=== PATIENT | male | born 1945 | race Caucasian/White ===

== ENCOUNTER → 2018-08-19 | Outpatient (CLI) | payer MEDICARE ==
[~2018-08-19] MED LIST: DOBUTamine DRIP for NUC MED 500 MG in DEXTROSE/WATER 1 250ML.BAG IV ONE
--- NOTE | 2018-08-19 10:20 | XR ---
EXAMINATION TYPE: XR chest 2V DATE OF EXAM: 08/19/2018 COMPARISON: 01/29/2014 TECHNIQUE: PA and lateral views submitted. HISTORY: Shortness of breath FINDINGS: The lungs are clear and there is no pneumothorax, pleural effusion, or focal pneumonia. Hypertrophi c and degenerative change of the spine. Postsurgical change involving the upper lumbar spine. No over t failure. IMPRESSION: 1. No acute process.
--- NOTE | 2018-08-19 15:45 | P.STRESS ---
- Stress Test Note Stress Test Results/Findings: Exam Performed: dobutamine stress echo Exam Date: 08/19/18 Reason for Exam: SOB Height: 6 ft Weight: 97.522 kg Protocol: DSE Stage: 2 Duration of Exercise: 5:28 Resting Heart Rate: 92 Resting Blood Pressure: 131/107 Maximum Achieved Heart Rate: 132 Maximum Achieved Blood Pressure: 158/64 85% PMHR: 128 100% PMHR: 150 METS: NA Technologist Comment: Stress Test Results/Findings: Patient referred for a stress echo by Dr. Linder Complaining of shortness of breath on exertion Baseline heart rate 92 beats a minute, Baseline blood pressure 131/57 mmHg The center ECG showed sinus rhythm and incomplete right bundle branch block pattern normal ST segments Patient exercised on a Rajiv protocol for 5 minutes 28 seconds achieving a peak heart rate of 126 beats a minute normal blood pressure response to exercise. He complains of shortness of breath at peak exercise There was no ECG evidence for ischemia no sustained or nonsustained arrhythmias noted only occasional PVCs noted Baseline 2-D echo showed normal LV systolic function without segmental wall motion abnormalities At peak exercise there was excellent augmentation of oral LV contractility without development of any wall motion abnormalities @Recovery regional global LV systolic function and normal Impression Average exercise capacity, occasional PVCs, no ECG or echocardiographic evidence for ischemia
== END | disposition home or self-care (01) ==
LOC: RADNMMAIN 08:57
PROVIDERS: ATTEND Internal Medicine
DX: I49.3 Ventricular premature depolarization (principal)
CPT/HCPCS: 93351; 71046; J1250

== ENCOUNTER 2020-01-18 05:13 | Observation (INO) | payer MEDICARE ==
[2020-01-18] MEDS ORDERED: LORazepam 2 MG/ML INJ IV STA (05:42)
[2020-01-18] MEDS ORDERED: SODIUM CHLORIDE 0.9% 1,000 ML IV STA (05:42)
--- NOTE | 2020-01-18 05:45 | ED ---
General Adult HPI - General Chief complaint: Chest Pain Stated complaint: Chest Pain, SOB Time Seen by Provider: 01/18/20 05:27 Source: patient Mode of arrival: ambulatory Limitations: no limitations - History of Present Illness Initial comments: Dictation was produced using [employer] dictation software. please excuse any grammatical, word or spelling errors. Chief Complaint: 74-year-old male presents with chest pain and headache. History of Present Illness: Male he was recently diagnosed with hypertension. Patient was started on blood pressure medications. Patient states that for the last 9 hours he's been having headache and chest pain. Patient states that the pain is sharp and constant to his anterior chest. Patient states he also has a headache. He describes it as holocranial. He feels rather severely anxious. He is been monitoring his blood pressures at home which he takes reports he is having difficulty controlling. He denies any diaphoresis. Pain does not radiate to the shoulders or jaw. Patient takes also medications for his blood pressure. No fever, chills or night sweats. He request medication to treat his anxiety. The ROS documented in this emergency department record has been reviewed and confirmed by me. Those systems with pertinent positive or negative responses have been documented in the HPI. All other systems are other negative and/or noncontributory. PHYSICAL EXAM: General Impression: Alert and oriented x3, not in acute distress HEENT: Normocephalic atraumatic, extra-ocular movements intact, pupils equal and reactive to light bilaterally, mucous membranes moist. Cardiovascular: Heart regular rate and rhythm, S1&S2 audible, no murmurs, rubs or gallops Chest: Lungs clear to auscultation bilaterally, no rhonchi, no wheeze, no rales Abdomen: Bowel sounds present, abdomen soft, non-tender, non-distended, no organomegaly Musculoskeletal: Pulses present and equal in all extremities, no peripheral edema Motor: no focal deficits noted Neurological: CN II-XII grossly intact, no focal motor or sensory deficits noted Skin: Intact with no visualized rashes Psych: Normal affect and mood ED course: 74-year-old male presents with headache, anxiety reaction and chest pain. Vital signs upon arrival shows heart rate of 109, rest of vital signs within acceptable limits. Of note his blood pressure is 188/99. Patient does not have any neurologic deficits or strokelike symptoms. Patient's chest pain is atypical with typical features. Patient is well-appearing at bedside.Labor atory evaluation obtained. CBC, coag panel, metabolic panel is unremarkable. First set troponins negative. Chest x-ray is nonacute. Patient reevaluated bedside time is stable medical condition. Patient reports persistent symptoms. He does however appear to be well. No acute distress. Patient be admitted for surgical and cardiology consultation. Clinical presentation consistent with atypical chest pain with typical features. EKG interpretation: Ventricular rate 95, normal sinus rhythm, [place] interval 180, QRS 110, QTc 510. - Related Data Allergies Allergy/AdvReac Type Severity Reaction Status Date / Time No Known Allergies Allergy Unverified 08/19/18 09:41 Review of Systems ROS Statement: Those systems with pertinent positive or pertinent negative responses have been documented in the HPI. ROS Other: All systems not noted in ROS Statement are negative. Past Medical History Past Medical History: Diabetes Mellitus, Hypertension Past Surgical History: Orthopedic Surgery Additional Past Surgical History / Comment(s): Left knee 2019. Past Psychological History: No Psychological Hx Reported Smoking Status: Never smoker Past Alcohol Use History: Occasional General Exam Limitations: no limitations Course Vital Signs 01/18/20 01/18/20 05:20 06:49 Temperature 97.5 F L 97.5 F L Pulse Rate 109 H 84 Respiratory 18 16 Rate Blood Pressure 188/99 157/94 O2 Sat by Pulse 97 98 Oximetry Medical Decision Making - Lab Data Result diagrams: 01/18/20 05:40 01/18/20 05:40 Lab Results 01/18/20 01/18/20 01/18/20 Range/Units 05:40 05:40 05:40 WBC 7.1 (3.8-10.6) k/uL RBC 4.02 L (4.30-5.90) m/uL Hgb 12.3 L (13.0-17.5) gm/dL Hct 36.4 L (39.0-53.0) % MCV 90.6 (80.0-100.0) fL MCH 30.6 (25.0-35.0) pg MCHC 33.8 (31.0-37.0) g/dL RDW 12.9 (11.5-15.5) % Plt Count 334 (150-450) k/uL Neutrophils % 57 % Lymphocytes % 27 % Monocytes % 6 % Eosinophils % 6 % Basophils % 1 % Neutrophils # 4.1 (1.3-7.7) k/uL Lymphocytes # 1.9 (1.0-4.8) k/uL Monocytes # 0.4 (0-1.0) k/uL Eosinophils # 0.4 (0-0.7) k/uL Basophils # 0.0 (0-0.2) k/uL PT 10.1 (9.0-12.0) sec INR 1.0 (<1.2) APTT 23.4 (22.0-30.0) sec Sodium 139 (137-145) mmol/L Potassium 3.8 (3.5-5.1) mmol/L Chloride 103 (98-107) mmol/L Carbon Dioxide 25 (22-30) mmol/L Anion Gap 11 mmol/L BUN 20 (9-20) mg/dL Creatinine 1.33 H (0.66-1.25) mg/dL Est GFR (CKD-EPI)AfAm 62 (>60 ml/min/1.73 sqM) Est GFR (CKD-EPI)NonAf 53 (>60 ml/min/1.73 sqM) Glucose 123 H (74-99) mg/dL Calcium 10.2 (8.4-10.2) mg/dL Magnesium 1.8 (1.6-2.3) mg/dL Total Bilirubin 0.6 (0.2-1.3) mg/dL AST 23 (17-59) U/L ALT 19 (4-49) U/L Alkaline Phosphatase 66 (38-126) U/L Troponin I (0.000-0.034) ng/mL Total Protein 7.9 (6.3-8.2) g/dL Albumin 5.1 H (3.5-5.0) g/dL 01/18/20 Range/Units 05:40 WBC (3.8-10.6) k/uL RBC (4.30-5.90) m/uL Hgb (13.0-17.5) gm/dL Hct (39.0-53.0) % MCV (80.0-100.0) fL MCH (25.0-35.0) pg MCHC (31.0-37.0) g/dL RDW (11.5-15.5) % Plt Count (150-450) k/uL Neutrophils % % Lymphocytes % % Monocytes % % Eosinophils % % Basophils % % Neutrophils # (1.3-7.7) k/uL Lymphocytes # (1.0-4.8) k/uL Monocytes # (0-1.0) k/uL Eosinophils # (0-0.7) k/uL Basophils # (0-0.2) k/uL PT (9.0-12.0) sec INR (<1.2) APTT (22.0-30.0) sec Sodium (137-145) mmol/L Potassium (3.5-5.1) mmol/L Chloride (98-107) mmol/L Carbon Dioxide (22-30) mmol/L Anion Gap mmol/L BUN (9-20) mg/dL Creatinine (0.66-1.25) mg/dL Est GFR (CKD-EPI)AfAm (>60 ml/min/1.73 sqM) Est GFR (CKD-EPI)NonAf (>60 ml/min/1.73 sqM) Glucose (74-99) mg/dL Calcium (8.4-10.2) mg/dL Magnesium (1.6-2.3) mg/dL Total Bilirubin (0.2-1.3) mg/dL AST (17-59) U/L ALT (4-49) U/L Alkaline Phosphatase (38-126) U/L Troponin I <0.012 (0.000-0.034) ng/mL Total Protein (6.3-8.2) g/dL Albumin (3.5-5.0) g/dL Disposition Clinical Impression: Chest pain Disposition: ADMITTED IP TO THIS HOSP Condition: Fair Referrals: Ras Leong MD [Primary Care Provider] - 1-2 days Decision Time: 06:52
[2020-01-18 05:57] LABS: Basophils % (A) 1 %; Eosinophils # (A) 0.4 k/uL (0-0.7); Eosinophils % (A) 6 %; HCT 36.4 % (39.0-53.0); HGB 12.3 gm/dL (13.0-17.5); Lymphocytes # (A) 1.9 k/uL (1.0-4.8); Lymphocytes % (A) 27 %; MCH 30.6 pg (25.0-35.0); MCHC 33.8 g/dL (31.0-37.0); MCV 90.6 fL (80.0-100.0); Mean Platelet Volume 7.9; Monocytes # (A) 0.4 k/uL (0-1.0); Monocytes % (A) 6 %; Neutrophils # (A) 4.1 k/uL (1.3-7.7); Neutrophils % (A) 57 %; Platelet Count 334 k/uL (150-450); RBC 4.02 m/uL (4.30-5.90); RDW 12.9 % (11.5-15.5); WBC 7.1 k/uL (3.8-10.6)
[2020-01-18 06:05] LABS: Partial Thromboplastin Time 23.4 sec (22.0-30.0); Prothrombin Time 10.1 sec (9.0-12.0)
[2020-01-18 06:08] LABS: Albumin 5.1 g/dL (3.5-5.0); Calcium 10.2 mg/dL (8.4-10.2); Magnesium 1.8 mg/dL (1.6-2.3); Potassium 3.8 mmol/L (3.5-5.1); Total Bilirubin 0.6 mg/dL (0.2-1.3); Total Protein 7.9 g/dL (6.3-8.2)
--- NOTE | 2020-01-18 06:10 | XR ---
EXAM: XR Chest, 2 Views CLINICAL HISTORY: ITS.REASON XR Reason: Chest Pain TECHNIQUE: Frontal and lateral views of the chest. COMPARISON: 08/19/2018 IMPRESSION: Mild cardiomegaly. No consolidation or pleural effusion.
[2020-01-18] MEDS ORDERED: ASPIRIN 81 MG PO STA ×2 (06:49→09:15)
[2020-01-18] MEDS ORDERED: NITROGLYCERIN SL TABS 0.4 MG TAB SUBLINGUAL PRN (06:49)
[2020-01-18] MEDS ORDERED: PANTOPRAZOLE 40 MG TABLET PO SCH (09:00)
[2020-01-18] MEDS ORDERED: ALLOPURINOL 300 MG TAB PO SCH (09:00)
[2020-01-18] MEDS ORDERED: METOPROLOL TARTRATE 50 MG TAB PO SCH (09:00)
[2020-01-18] MEDS ORDERED: LOSARTAN 25 MG TAB PO SCH (09:00)
[2020-01-18] MEDS: hydrALAZINE HCL 25 MG TAB PO SCH ×3 (09:18→20:12)
[2020-01-18] MEDS: VIT A,C & E-LUTEIN-MINERALS 1 EACH TAB PO SCH ×2 (09:19→20:12)
--- NOTE | 2020-01-18 10:22 | ECHOF ---
Referral Reason:cp, elev bp MEASUREMENTS -------- HEIGHT: 180.3 cm WEIGHT: 93.0 kg BP: 181/90 RVIDd: 3.2 cm (< 3.3) IVSd: 1.5 cm (0.6 - 1.1) LVIDd: 4.2 cm (3.9 - 5.3) LVPWd: 1.5 cm (0.6 - 1.1) IVSs: 2.0 cm LVIDs: 3.4 cm LVPWs: 1.6 cm LA Diam: 3.9 cm (2.7 - 3.8) LAESV Index (A-L): 31.21 ml/m Ao Diam: 4.1 cm (2.0 - 3.7) AV Cusp: 2.4 cm (1.5 - 2.6) MV EXCURSION: 12.364 mm (> 18.000) MV EF SLOPE: 95 mm/s (70 - 150) EPSS: 2.4 cm MV E Rigo: 0.70 m/s MV DecT: 182 ms MV A Rigo: 1.08 m/s MV E/A Ratio: 0.64 FINDINGS -------- Sinus rhythm. This was a technically good study. The left ventricular size is normal. There is moderate concentric left ventricular hypertrophy. O verall left ventricular systolic function is normal with, an EF between 55 - 60 %. The right ventricle is normal in size. LA is midly dilated 29-33ml/m2. The right atrium is normal in size. There is mild aortic valve sclerosis. There is mild aortic regurgitation. There is trace mitral regurgitation. The tricuspid valve appears structurally normal. Trace/mild (physiologic) pulmonic regurgitation. The aortic root is dilated measuring 4.1cm. Normal inferior vena cava with normal inspiratory collapse consistent with estimated right atrial pre ssure of 5 mmHg. There is no pericardial effusion. CONCLUSIONS -------- 1. Sinus rhythm. 2. This was a technically good study. 3. The left ventricular size is normal. 4. There is moderate concentric left ventricular hypertrophy. 5. Overall left ventricular systolic function is normal with, an EF between 55 - 60 %. 6. The right ventricle is normal in size. 7. LA is midly dilated 29-33ml/m2. 8. The right atrium is normal in size. 9. There is mild aortic valve sclerosis. 10. There is mild aortic regurgitation. 11. There is trace mitral regurgitation. 12. The tricuspid valve appears structurally normal. 13. Trace/mild (physiologic) pulmonic regurgitation. 14. The aortic root is dilated measuring 4.1cm. 15. Normal inferior vena cava with normal inspiratory collapse consistent with estimated right atrial pressure of 5 mmHg. 16. There is no pericardial effusion. [employer]OWS ENGINEER: Honey Michael RDCS
--- NOTE | 2020-01-18 10:37 | P.CRDCN ---
History of Present Illness History of present illness: HISTORY OF PRESENTING ILLNESS This is a pleasant 74-year-old male past medical history significant for hypertension, diabetes mellitus, dyslipidemia and peripheral neuropathy. 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 We have been asked to see in consultation for chest pain. He is seen and examined laying flat resting comfortably in bed no acute distress. He states he has been following closely with his PCP recently and attempting to better control his blood pressure. He has been checking his blood pressures quite regularly at home and was instructed to take an additional hydralazine for systolic blood pressure over 150. All day yesterday his blood pressures were remaining elevated. Towards night time he was attempting to fall asleep however he developed a tightness across his chest with a heaviness in ben th of his arms associated with shortness of breath. On arrival to the ER blood pressure was 188/99. This morning he remains elevated at 181/90. At home he takes hydralazine 50 mg BID, cardura 4 mg at bedtime and lopressor 100 mg daily. DIAGNOSTICS EKG reveals sinus mechanism, incomplete right bundle branch block with no acute ST changes. Chest xray reveals mild cardiomegaly with no acute cardiopulmonary process. Laboratory reviewed, WBC 7.1, hgb 12.3, plt 334, sodium 139, potassium 3.8, creatinine 1.33, GFR 53, magnesium 1.8, cardiac enzymes negative x1. Current cardiac medications include hydralazine 50 mg BID, doxazosin 4 mg daily, aspirin 81 mg daily and lopressor 100 mg daily. REVIEW OF SYSTEMS At the time of my exam: CONSTITUTIONAL: Denies fever or chills. CARDIOVASCULAR: Denies chest pain, shortness of breath, orthopnea, PND or palpitations. RESPIRATORY: Denies cough. GASTROINTESTINAL: Denies abdominal pain, diarrhea, constipation, nausea or vomiting. MUSCULOSKELETAL: Denies myalgias. NEUROLOGIC: Denies numbness, tingling or weakness. ENDOCRINE: Denies fatigue, weight change, polydipsia or polyurina. GENITOURINARY: Denies burning, hematuria or urgency with micturation. HEMATOLOGIC: Denies history of anemia or bleeding. PHYSICAL EXAMINATION Blood pressure 181/90 heart rate 89 afebrile and maintaining oxygen saturation on room . CONSTITUTIONAL: No apparent distress. HEENT: Head is normocephalic. Pupils are equal, round. Sclerae anicteric. Mucous membranes of the mouth are moist. No JVD. No carotid bruit. CHEST EXAMINATION: Lungs are clear to auscultation. No chest wall tenderness is noted on palpation or with deep breathing. HEART EXAMINATION: Regular rate and rhythm. S1, S2 heard. No murmurs, gallops or rub. ABDOMEN: Soft, nontender. Positive bowel sounds. EXTREMITIES: 2+ peripheral pulses, no lower extremity edema and no calf tenderness. NEUROLOGIC EXAMINATION: Patient is awake, alert and oriented x3. ASSESSMENT Chest pain, atypical for angina Hypertension, uncontrolled Diabetes mellitus Acute kidney injury Peripheral neuropathy PLAN Continue to obtain serial enzymes to rule out an acute event. Symptoms likely related to elevated blood pressures. Recommend controlling his blood pressure first before stress testing. Increase hydralazine to 75 mg TID and initiate losartan 25 mg daily. Losartan will provide renal protective properties as well given his history of diabetes mellitus. Obtain 2D echocardigram and doppler study to assess cardiac structure and function. Thank you kindly for this consultation. Nurse Practitioner note has been reviewed, I agree with a documented findings and plan of care. Patient was seen and examined. Past Medical History Past Medical History: Diabetes Mellitus, Hypertension Past Surgical History: Orthopedic Surgery Additional Past Surgical History / Comment(s): Left knee 2019. Past Psychological History: No Psychological Hx Reported Smoking Status: Never smoker Past Alcohol Use History: Occasional - Past Family History Father Family Medical History: Myocardial Infarction ([place]) Additional Family Medical History / Comment(s): arthritis Mother Family Medical History: Cancer Additional Family Medical History / Comment(s): pancreatic Sister(s) Family Medical History: Cancer Additional Family Medical History / Comment(s): arthritis, skin ca Brother(s) Family Medical History: Cancer Additional Family Medical History / Comment(s): skin ca Medications and Allergies Home Medications Medication Instructions Recorded Confirmed Type Allopurinol [Zyloprim] 300 mg PO DAILY 01/18/20 01/18/20 History Aspirin EC [Ecotrin Low Dose] 81 mg PO HS 01/18/20 01/18/20 History Doxazosin [Cardura] 4 mg PO HS 01/18/20 01/18/20 History Fish Oil/Dha/Epa [Fish Oil 1,200 2,400 mg PO DAILY 01/18/20 01/18/20 History mg Fish Oil] Metoprolol Tartrate [Lopressor] 100 mg PO DAILY 01/18/20 01/18/20 History Montelukast Sodium [Singulair] 10 mg PO HS 01/18/20 01/18/20 History Naproxen Sodium [Aleve] 220 mg PO DAILY 01/18/20 01/18/20 History Niacinamide 500mg 500 mg PO BID 01/18/20 01/18/20 History Omeprazole 20 mg PO DAILY 01/18/20 01/18/20 History Simvastatin 40 mg PO HS 01/18/20 01/18/20 History Vit C/E/Zn/Coppr/Lutein/Zeaxan 1 cap PO BID 01/18/20 01/18/20 History [Preservision Areds 2 Softgel] hydrALAZINE HCL 50 mg PO BID-W/MEALS 01/18/20 01/18/20 History metFORMIN HCL [Glucophage] 500 mg PO BID 01/18/20 01/18/20 History Allergies Allergy/AdvReac Type Severity Reaction Status Date / Time No Known Allergies Allergy Verified 01/18/20 07:06 Physical Exam Vitals: Vital Signs Temp Pulse Pulse Resp BP BP Pulse Ox 01/18/20 07:51 97.8 F 89 16 181/90 97 01/18/20 07:03 158/93 01/18/20 06:49 97.5 F L 84 16 157/94 98 01/18/20 05:20 97.5 F L 109 H 18 188/99 97 Intake and Output 01/17/20 01/18/20 01/18/20 22:59 06:59 14:59 Other: Weight 92.986 kg Results 01/18/20 05:40 01/18/20 05:40 Cardiac Enzymes 01/18/20 01/18/20 Range/Units 05:40 05:40 AST 23 (17-59) U/L Troponin I <0.012 (0.000-0.034) ng/mL Coagulation 01/18/20 Range/Units 05:40 PT 10.1 (9.0-12.0) sec APTT 23.4 (22.0-30.0) sec CBC 01/18/20 Range/Units 05:40 WBC 7.1 (3.8-10.6) k/uL RBC 4.02 L (4.30-5.90) m/uL Hgb 12.3 L (13.0-17.5) gm/dL Hct 36.4 L (39.0-53.0) % Plt Count 334 (150-450) k/uL Comprehensive Metabolic Panel 01/18/20 Range/Units 05:40 Sodium 139 (137-145) mmol/L Potassium 3.8 (3.5-5.1) mmol/L Chloride 103 (98-107) mmol/L Carbon Dioxide 25 (22-30) mmol/L BUN 20 (9-20) mg/dL Creatinine 1.33 H (0.66-1.25) mg/dL Glucose 123 H (74-99) mg/dL Calcium 10.2 (8.4-10.2) mg/dL AST 23 (17-59) U/L ALT 19 (4-49) U/L Alkaline Phosphatase 66 (38-126) U/L Total Protein 7.9 (6.3-8.2) g/dL Albumin 5.1 H (3.5-5.0) g/dL Current Medications Generic Name Dose Route Start Last Admin Trade Name Freq PRN Reason Stop Dose Admin Aspirin 81 mg 01/19/20 09:00 Aspirin PO DAILY [facility] Hydralazine HCl 75 mg 01/18/20 09:00 Apresoline PO TID [facility] Nitroglycerin 0.4 mg 01/18/20 06:49 Nitrostat SUBLINGUAL Q5M PRN Chest Pain Intake and Output 01/17/20 01/18/20 01/18/20 22:59 06:59 14:59 Other: Weight 92.986 kg 01/18/20 05:40 01/18/20 05:40
[2020-01-18] MEDS ORDERED: ACETAMINOPHEN TAB 325 MG TAB PO PRN (10:49)
[2020-01-18 11:56] LABS: Glucose,Whole Blood 166 mg/dL (75-99)
[2020-01-18] MEDS: INSULIN ASPART (NovoLOG) 100 UNIT/ML VIAL SQ SCH ×3 (12:00→20:12)
--- NOTE | 2020-01-18 14:10 | P.HPIM ---
History of Present Illness H&P Date: 01/18/20 Chief Complaint: High blood pressure, headache, chest pain This is a 74-year-old male patient of Dr. Leong with past medical history of diabetes mellitus type 2, hypertension. Patient denies having any difficulties with his blood pressure in the past but most recently in the office he was given a prescription for hydralazine to use as needed if his systolic blood pressure was greater than 150. He states he ended up taking that this morning but it didn't seem to improve his blood pressure. He started having trouble night before last with his blood pressure began elevated and he was monitoring it. He denies having any shortness of breath. He does complain of chest discomfort that was a crushing type in the center. He also complains of generalized headache. He denies any numbness or tingling, no lightheadedness or dizziness. He denies any sided weakness. He states he normally exercises on a regular basis. Because of neuropathy which was worked up at [facility] he has trouble with balance and uses a cane at all times. Cause of neuropathy is unknown. At the time of this evaluation. Patient states he has a little headache. No chest pain. Blood pressure remains high. Patient came into [facility] emergency center for evaluation. EKG reveals sinus mechanism, incomplete right bundle branch block with no acute ST changes. Chest xray reveals mild cardiomegaly with no acute cardiopulmonary process. WBC 7.1, hgb 12.3, plt 334, sodium 139, potassium 3.8, creatinine 1.33, GFR 53, magnesium 1.8, cardiac enzymes negative x1. Initial ER blood pressure was 188/99. Patient was placed on the observation unit and seen in consultation by cardiology. Patient was placed on losartan which he has taken off his medication due to increasing renal function in the outpatient setting. Also, patient was started on hydralazine at 75 mg 3 times daily, Lopressor was continued at home dose. Recheck a blood pressure was 129/66. Repeat troponin has been negative. Patient will be discharged home today in stable condition with plan for follow-up with Dr. Leong the office. Review of Systems Constitutional: Denies chills, Denies fatigue, Denies fever, Denies lethargy, Denies malaise, Denies poor appetite, Denies weakness, Denies weight loss Eyes: denies blurred vision, denies pain Ears, nose, mouth and throat: Reports headache, Denies dental pain, Denies dysphagia, Denies nasal congestion, Denies nasal discharge, Denies vertigo Cardiovascular: Reports chest pain, Denies decreased exercise tolerance, Denies dyspnea on exertion, Denies edema, Denies leg edema, Denies lightheadedness, Denies orthopnea, Denies palpitations, Denies shortness of breath, Denies syncope Respiratory: Denies cough, Denies cough with sputum, Denies dyspnea, Denies excessive sputum, Denies hemoptysis, Denies home oxygen, Denies respiratory infections, Denies wheezing Gastrointestinal: Denies abdominal pain, Denies constipation, Denies diarrhea, Denies loss of appetite, Denies nausea, Denies vomiting Genitourinary: Denies dysuria, Denies urinary retention Musculoskeletal: Reports gait dysfunction (chronic), Denies muscle weakness, Denies myalgias Integumentary: Denies pruritus, Denies rash, Denies wounds Neurological: Reports headaches, Denies change in mentation, Denies change in speech, Denies numbness, Denies seizures, Denies vertigo, Denies weakness Psychiatric: Denies anxiety, Denies depression Endocrine: Denies fatigue, Denies weight change Past Medical History Past Medical History: Diabetes Mellitus, Hypertension Additional Past Medical History / Comment(s): skin ca, neuropathy, arthritis, shingles History of Any Multi-Drug Resistant Organisms: None Reported Past Surgical History: Orthopedic Surgery Additional Past Surgical History / Comment(s): Left knee 2019. Past Psychological History: No Psychological Hx Reported Smoking Status: Never smoker Past Alcohol Use History: Occasional - Past Family History Father Family Medical History: Myocardial Infarction ([place]), Osteoarthritis (OA) Additional Family Medical History / Comment(s): Father had several myocardial infarctions his first starting in the 50s, at age 88. Mother Family Medical History: Cancer Additional Family Medical History / Comment(s): Mother did not have any coronary artery disease, no history of stroke. She from pancreatic cancer. Sister(s) Family Medical History: Cancer Additional Family Medical History / Comment(s): arthritis, skin ca Brother(s) Family Medical History: Cancer Additional Family Medical History / Comment(s): skin ca Medications and Allergies Home Medications Medication Instructions Recorded Confirmed Type Allopurinol [Zyloprim] 300 mg PO DAILY 01/18/20 01/18/20 History Aspirin EC [Ecotrin Low Dose] 81 mg PO HS 01/18/20 01/18/20 History Doxazosin [Cardura] 4 mg PO HS 01/18/20 01/18/20 History Fish Oil/Dha/Epa [Fish Oil 1,200 2,400 mg PO DAILY 01/18/20 01/18/20 History mg Fish Oil] Losartan [Cozaar] 25 mg PO DAILY #30 tab 01/18/20 Rx Metoprolol Tartrate [Lopressor] 100 mg PO DAILY 01/18/20 01/18/20 History Montelukast Sodium [Singulair] 10 mg PO HS 01/18/20 01/18/20 History Naproxen Sodium [Aleve] 220 mg PO DAILY 01/18/20 01/18/20 History Niacinamide 500mg 500 mg PO BID 01/18/20 01/18/20 History Omeprazole 20 mg PO DAILY 01/18/20 01/18/20 History Simvastatin 40 mg PO HS 01/18/20 01/18/20 History Vit C/E/Zn/Coppr/Lutein/Zeaxan 1 cap PO BID 01/18/20 01/18/20 History [Preservision Areds 2 Softgel] hydrALAZINE HCL [Apresoline] 75 mg PO TID #270 tab 01/18/20 Rx metFORMIN HCL [Glucophage] 500 mg PO BID 01/18/20 01/18/20 History Allergies Allergy/AdvReac Type Severity Reaction Status Date / Time No Known Allergies Allergy Verified 01/18/20 07:06 Physical Exam Vitals: Vital Signs Temp Pulse Pulse Resp BP BP Pulse Ox 01/18/20 08:00 97.8 F 89 16 181/90 97 01/18/20 07:51 97.8 F 89 16 181/90 97 01/18/20 07:03 158/93 01/18/20 06:49 97.5 F L 84 16 157/94 98 01/18/20 05:20 97.5 F L 109 H 18 188/99 97 Intake and Output 01/17/20 01/18/20 01/18/20 22:59 06:59 14:59 Intake Total 200 Balance 200 Intake: Other 200 Other: Voiding Method Toilet Weight 92.986 kg 92.986 kg Gen: This is a 74-year-old male. Patient is resting in bed appears to be comfortable and in no acute distress. HEENT: Head is atraumatic, normocephalic. Pupils equal, round. Sclerae is anicteric. NECK: Supple. No JVD. No lymphadenopathy. No thyromegaly. LUNGS: Clear to auscultation. No wheezes or rhonchi. No intercostal retractions. HEART: Regular rate and rhythm. No murmur. ABDOMEN: Soft. Bowel sounds are present. No masses. No tenderness. EXTREMITIES: No pedal edema. No calf tenderness. NEUROLOGICAL: Patient is awake, alert and oriented x3. Cranial nerves 2 through 12 are grossly intact. Results CBC & Chem 7: 01/18/20 05:40 01/18/20 05:40 Labs: Abnormal Lab Results - Last 24 Hours (Table) 01/18/20 01/18/20 Range/Units 05:40 05:40 RBC 4.02 L (4.30-5.90) m/uL Hgb 12.3 L (13.0-17.5) gm/dL Hct 36.4 L (39.0-53.0) % Creatinine 1.33 H (0.66-1.25) mg/dL Glucose 123 H (74-99) mg/dL Albumin 5.1 H (3.5-5.0) g/dL Thrombosis Risk Factor Assmnt - Choose All That Apply Any of the Below Risk Factors Present?: Yes Each Factor Represents 1 point: Obesity (BMI >25) Other Risk Factors: Yes Each Risk Factor Represents 2 Points: Age 61-74 years Other congenital or acquired thrombophilia - If yes, enter type in comment: No Thrombosis Risk Factor Assessment Total Risk Factor Score: 3 Thrombosis Risk Factor Assessment Level: Moderate Risk Assessment and Plan Plan: 1. Chest pain possibly related to elevated blood pressure. Cardiology consult appreciated. 2. Hypertensive urgency. 3. Diabetes mellitus type 2 with last hemoglobin A1c 6.1. 4. Chronic kidney disease stage III. 5. Idiopathic peripheral neuropathy. Patient placed on the observation unit. Discharge plan: Home Discharge Medication List Allopurinol [Zyloprim] 300 mg PO DAILY 01/18/20 [History] Aspirin EC [Ecotrin Low Dose] 81 mg PO HS 01/18/20 [History] Doxazosin [Cardura] 4 mg PO HS 01/18/20 [History] Fish Oil/Dha/Epa [Fish Oil 1,200 mg Fish Oil] 2,400 mg PO DAILY 01/18/20 [History] Losartan [Cozaar] 25 mg PO DAILY #30 tab 01/18/20 [Rx] Metoprolol Tartrate [Lopressor] 100 mg PO DAILY 01/18/20 [History] Montelukast Sodium [Singulair] 10 mg PO HS 01/18/20 [History] Naproxen Sodium [Aleve] 220 mg PO DAILY 01/18/20 [History] Niacinamide 500mg 500 mg PO BID 01/18/20 [History] Omeprazole 20 mg PO DAILY 01/18/20 [History] Simvastatin 40 mg PO HS 01/18/20 [History] Vit C/E/Zn/Coppr/Lutein/Zeaxan [Preservision Areds 2 Softgel] 1 cap PO BID 01/18/20 [History] hydrALAZINE HCL [Apresoline] 75 mg PO TID #270 tab 01/18/20 [Rx] metFORMIN HCL [Glucophage] 500 mg PO BID 01/18/20 [History] Impression and plan of care have been directed as dictated by the signing physician. Tonya Akers nurse practitioner acting as scribe for signing physician.
[2020-01-18 16:08] VITALS: RESP 18
[2020-01-18 16:27] LABS: Glucose,Whole Blood 115 mg/dL (75-99)
[2020-01-18] MEDS ORDERED: LOSARTAN 25 MG TAB PO STA (18:11)
[2020-01-18 19:38] LABS: Glucose,Whole Blood 129 mg/dL (75-99)
[2020-01-18 20:50] VITALS: PULSE 85; TEMP 98.2
[2020-01-18] MEDS ORDERED: DOXAZOSIN 4 MG TAB PO SCH (21:00)
[2020-01-18] MEDS ORDERED: MONTELUKAST 10 MG TAB PO SCH (21:00)
[2020-01-18] MEDS ORDERED: ATORVASTATIN 20 MG TAB PO SCH (21:00)
[2020-01-18 21:44] VITALS: BP 152/90
[2020-01-19] MEDS ORDERED: ASPIRIN 325 MG TAB PO SCH (09:00)
[2020-01-19] MEDS ORDERED: ASPIRIN 81 MG PO SCH (09:00)
== END 2020-01-18 22:19 | disposition home or self-care (01) ==
LOC: EC 05:13 → 1SOBS 06:49
PROVIDERS: ADMIT Internal Medicine; ATTEND Internal Medicine
DX: R07.9 Chest pain, unspecified (principal); N18.3 Chronic kidney disease, stage 3 (moderate); I12.9 Hypertensive chronic kidney disease with stage 1 through stage 4 chronic kidney disease, or unspecified chronic kidney disease; E11.42 Type 2 diabetes mellitus with diabetic polyneuropathy; I45.10 Unspecified right bundle-branch block; E78.5 Hyperlipidemia, unspecified; Z79.82 Long term (current) use of aspirin; Z79.899 Other long term (current) drug therapy; I51.7 Cardiomegaly; Z85.828 Personal history of other malignant neoplasm of skin; Z87.898 Personal history of other specified conditions; Z82.49 Family history of ischemic heart disease and other diseases of the circulatory system
CPT/HCPCS: 96374; 99285; 36415; 93005; 93306; 80053; 83735; 84484; 85025; 85610; 85730; 71046; G0378; J2060

== ENCOUNTER → 2020-08-04 | Outpatient (CLI) | payer MEDICARE ==
--- NOTE | 2020-08-04 10:18 | XR ---
EXAMINATION TYPE: XR cervical spine comp DATE OF EXAM: 08/04/2020 COMPARISON: NONE HISTORY: Pain TECHNIQUE: Four views are submitted. FINDINGS: The odontoid is intact. There are no compression deformities. The prevertebral soft tissue structur es are within normal limits. Hypertrophic and degenerative changes spine. Multilevel facet arthropat hy. Severe degenerative disc disease at all levels foraminal encroachment suspected at all levels. Mu ltilevel canal stenosis is IMPRESSION: 1. Severe degenerative disc disease at all levels with severe facet arthropathy is technical foramina l encroachment bilaterally. MRI recommended to assess for canal stenosis and foraminal encroachment..
== END | disposition home or self-care (01) ==
LOC: RADXRMAIN 09:51
PROVIDERS: ATTEND Internal Medicine Geriatric Medicine
DX: M47.892 Other spondylosis, cervical region (principal); M50.30 Other cervical disc degeneration, unspecified cervical region
CPT/HCPCS: 72050

== ENCOUNTER → 2021-08-10 | Outpatient (CLI) | payer MEDICARE ==
--- NOTE | 2021-08-10 12:38 | XR ---
EXAMINATION TYPE: XR chest 2V DATE OF EXAM: 08/10/2021 COMPARISON: 01/18/2020 TECHNIQUE: PA and lateral views submitted. HISTORY: Shortness of breath FINDINGS: The lungs are clear and there is no pneumothorax, pleural effusion, or focal pneumonia. Hypertrophi c and degenerative change of the spine. Hyperinflation of the lungs. Diffuse osteopenia. No overt jarvis lure. Atherosclerotic change of the aorta. Postsurgical change lumbar vertebral column. IMPRESSION: 1. No acute process.
== END | disposition home or self-care (01) ==
LOC: RADXRMAIN 12:15
PROVIDERS: ATTEND Internal Medicine Geriatric Medicine
DX: R06.02 Shortness of breath (principal)
CPT/HCPCS: 71046

== ENCOUNTER → 2022-04-03 | Day surgery (SDC) | payer MEDICARE ==
[~2022-04-03] MED LIST changes: -DOBUTamine DRIP for NUC MED 500 MG in DEXTROSE/WATER 1 250ML.BAG IV ONE; +LACTATED RINGERS 1,000 ML IV SCH; +LIDOCAINE 1% (10MG/ML) FOR IV START INTRADERMA PRN; +PROPOFOL 10 MG/ML 20 ML VIAL IV ONE
[2022-04-03 07:14] VITALS: TEMP 97.9
[2022-04-03 07:24] LABS: Glucose,Whole Blood 96 mg/dL (75-99)
--- NOTE | 2022-04-03 07:41 | P.GSHP ---
History of Present Illness H&P Date: 04/03/22 Chief Complaint: Rectal bleeding 76-year-old male here today for colonoscopy. Patient had his last colonoscopy approximately 5 years ago. Diverticulosis was seen. Family history of colon cancer in his father. Recently patient has had increased intermittent rectal bleeding. He thinks it may be related to a hemorrhoid he states. No history of polyps Past Medical History Past Medical History: Cancer, Diabetes Mellitus, Hyperlipidemia, Hypertension, Osteoarthritis (OA) Additional Past Medical History / Comment(s): Hx skin cancer. Neuropathy. Hx Shingles. Gout. History of Any Multi-Drug Resistant Organisms: None Reported Past Surgical History: Appendectomy, Back Surgery, Orthopedic Surgery Additional Past Surgical History / Comment(s): Left knee surgery, colonoscopies, right elbow surgery, laminectomy, L3-L4 fusion. Past Anesthesia/Blood Transfusion Reactions: No Reported Reaction Past Psychological History: No Psychological Hx Reported Smoking Status: Never smoker Past Alcohol Use History: Occasional Past Drug Use History: None Reported - Past Family History Father Family Medical History: Myocardial Infarction (CT), Osteoarthritis (OA) Additional Family Medical History / Comment(s): Father had several myocardial infarctions his first starting in the 50s, at age 88. Mother Family Medical History: Cancer Additional Family Medical History / Comment(s): Mother did not have any coronary artery disease, no history of stroke. She from pancreatic cancer. Sister(s) Family Medical History: Cancer, Osteoarthritis (OA) Additional Family Medical History / Comment(s): Skin cancer. Brother(s) Family Medical History: Cancer Additional Family Medical History / Comment(s): Skin cancer. Medications and Allergies Home Medications Medication Instructions Recorded Confirmed Type Allopurinol [Zyloprim] 300 mg PO DAILY 01/18/20 03/29/22 History Doxazosin [Cardura] 4 mg PO HS 01/18/20 03/29/22 History Fish Oil/Dha/Epa [Fish Oil 1,200 2,400 mg PO DAILY 01/18/20 03/29/22 History mg Fish Oil] Metoprolol Tartrate [Lopressor] 100 mg PO HS 01/18/20 03/29/22 History Montelukast Sodium [Singulair] 10 mg PO HS 01/18/20 03/29/22 History Niacinamide 500mg 500 mg PO BID 01/18/20 03/29/22 History Omeprazole 20 mg PO QAM 01/18/20 03/29/22 History Simvastatin 40 mg PO HS 01/18/20 03/29/22 History Vit C/E/Zn/Coppr/Lutein/Zeaxan 1 cap PO BID 01/18/20 03/29/22 History [Preservision Areds 2 Softgel] metFORMIN HCL [Glucophage] 500 mg PO BID 01/18/20 03/29/22 History Losartan Potassium 100 mg PO QAM 03/29/22 03/29/22 History Multivitamins, Thera [Multivitamin 1 tab PO DAILY 03/29/22 03/29/22 History (formulary)] hydrALAZINE HCL [Apresoline] 100 mg PO BID-W/MEALS 03/29/22 03/29/22 History Allergies Allergy/AdvReac Type Severity Reaction Status Date / Time No Known Allergies Allergy Verified 03/29/22 15:44 Surgical - Exam Vital Signs Temp Pulse Resp BP Pulse Ox 97.9 F 64 20 167/89 98 04/03/22 07:05 04/03/22 07:05 04/03/22 07:05 04/03/22 07:05 04/03/22 07:05 Physical exam: General: Well-developed, well-nourished HEENT: Normocephalic, sclerae nonicteric Abdomen: Nontender, nondistended Extremities: No edema Neuro: Alert and oriented Assessment and Plan (1) Rectal bleeding Narrative/Plan: Will proceed with colonoscopy at this time. Discussed options of hemorrhoidal banding with the patient. He would like us to proceed if we see an internal hemorrhoid that appears to be the source of recent bleeding. Risks of bleeding, infection, recurrence reviewed. He understands and wishes to proceed. Current Visit: Yes Status: Acute Code(s): K62.5 - HEMORRHAGE OF ANUS AND RECTUM SNOMED Code(s): 18077617
--- NOTE | 2022-04-03 08:10 | P.PCN ---
Date of Procedure: 04/03/22 Procedure(s) Performed: PREOPERATIVE DIAGNOSIS: Rectal bleeding, family history of colon cancer father POSTOPERATIVE DIAGNOSIS: Ascending colon polyp 3, descending colon polyp 2, diverticulosis, small internal and external hemorrhoids PROCEDURE: Colonoscopy with snare polypectomy and clip placement ANESTHESIA: MAC SURGEON: Srinath Loza M.D. SPECIMENS: Polyps ENDOSCOPIC PROCEDURE: The patient was placed on the endoscopy table in the left decubitus position. The Olympus colonoscope was inserted into the anus and passed under direct visualization to the base of the cecum. The appendiceal orifice was visualized. From that point the scope was slowly withdrawn inspecting all surfaces carefully. There were no neoplastic inflammatory or polypoid lesions throughout the cecum. In the ascending colon there were 3 small polyps adjacent to one another that were removed using the snare with cautery technique. The remainder of the ascending and transverse colon appeared normal. In the descending colon at 65 cm there was a sessile polyp measuring 7 mm in size that was removed using the snare with cautery technique. The base of the polyp was noted to bleed some. I clip was deployed with no further bleeding seen. A small adjacent polyp was also removed at that location. The remainder of the sigmoid and rectum appeared free of any neoplastic inflammatory or polypoid lesions. The patient had extensive left-sided diverticulosis. At the anus patient was noted to have both internal and external hemorrhoids. No signs of recent or active bleeding. The patient was taken to the recovery room in stable condition per anesthesia guidelines. RECOMMENDATIONS: Await biopsy results. Recommend repeat colonoscopy 3-5 years. Increase fiber.
[2022-04-03 08:40] VITALS: BP 186/90; PULSE 56; RESP 16
== END ==
LOC: ORWHC2ENDO 06:34
PROVIDERS: ATTEND Surgery
DX: D12.2 Benign neoplasm of ascending colon (principal); D12.4 Benign neoplasm of descending colon; K57.31 Diverticulosis of large intestine without perforation or abscess with bleeding; K64.8 Other hemorrhoids; E78.5 Hyperlipidemia, unspecified; I10 Essential (primary) hypertension; E11.40 Type 2 diabetes mellitus with diabetic neuropathy, unspecified; M19.90 Unspecified osteoarthritis, unspecified site; Z85.828 Personal history of other malignant neoplasm of skin; Z86.19 Personal history of other infectious and parasitic diseases; Z80.0 Family history of malignant neoplasm of digestive organs; Z82.49 Family history of ischemic heart disease and other diseases of the circulatory system; Z82.61 Family history of arthritis; M10.9 Gout, unspecified; Z90.49 Acquired absence of other specified parts of digestive tract; Z98.1 Arthrodesis status; Z98.890 Other specified postprocedural states; Z79.84 Long term (current) use of oral hypoglycemic drugs; Z79.899 Other long term (current) drug therapy
CPT/HCPCS: 88305; 45385; J2704; 45382

== ENCOUNTER 2022-04-15 06:58 | Emergency (ER) | payer MEDICARE ==
[2022-04-15 07:44] LABS: Potassium 4.3 mmol/L (3.5-5.1); Total Bilirubin 0.5 mg/dL (0.2-1.3); Total Protein 7.9 g/dL (6.3-8.2)
--- NOTE | 2022-04-15 07:44 | ED ---
General Adult HPI - General Chief complaint: Back Pain/Injury Stated complaint: Possible Kidney Stone Time Seen by Provider: 04/15/22 07:14 Source: patient, family Mode of arrival: wheelchair Limitations: no limitations - History of Present Illness Initial comments: Dictation was produced using [email or web address] dictation software. please excuse any grammatical, word or spelling errors. Chief Complaint: 76-year-old male presents emergency Department with dysuria and left-sided flank pain History of Present Illness: 76-year-old male he has past medical history of diabetes, dyslipidemia osteoarthritis and hypertension. He relates with canes secondary to neuropathy. Patient states that over the last 24 hours she is been experiencing severe colicky left-sided flank pain localized to the left lower flank. States is nonradiating. Patient over the last 48 hours has been experiencing dysuria. Patient states when he gets these waves of pain it's very severe. Patient has no history of kidney stones. No recent change in diet. The patient denies any fevers. No associated nausea, vomiting or diaphoresis. The ROS documented in this emergency department record has been reviewed and confirmed by me. Those systems with pertinent positive or negative responses have been documented in the HPI. All other systems are other negative and/or noncontributory. PHYSICAL EXAM: General Impression: Alert and oriented x3, not in acute distress HEENT: Normocephalic atraumatic, extra-ocular movements intact, pupils equal and reactive to light bilaterally, mucous membranes moist. Cardiovascular: Heart regular rate and rhythm Chest: Able to complete full sentences, no retractions, no tachypnea Abdomen: abdomen soft, non-tender, non-distended, no organomegaly Musculoskeletal: Pulses present and equal in all extremities, no peripheral e jaylan Motor: no focal deficits noted Neurological: CN II-XII grossly intact, no focal motor or sensory deficits noted Skin: Intact with no visualized rashes Psych: Normal affect and mood ED course: 76-year-old well-appearing male presents emergency department for chief complaint of colicky left flank pain. He has no history of kidney stones. Patient has multiple comorbidities. Vital signs upon arrival are within acceptable limits. Laboratory evaluation obtained. CBC is unremarkable. Metabolic panel is negative. Urinalysis shows 25 red blood cells. Computed tomography scan abdomen and pelvis without contrast shows 5.5 mm left UVJ calculus causing mild left-sided hydronephrosis. Patient evaluate fluids and analgesics. Patient reevaluated at 9:20 AM found to be in stable medical condition. Patient is agreeable for discharge. He is given by mouth analgesics. Patient counseled on kidney stone conservative management. Is given outpatient follow-up with urologist. Return precautions discussed. Patient discharged. - Related Data Home Medications Medication Instructions Recorded Confirmed Allopurinol [Zyloprim] 300 mg PO DAILY 01/18/20 03/29/22 Doxazosin [Cardura] 4 mg PO HS 01/18/20 03/29/22 Fish Oil/Dha/Epa [Fish Oil 1,200 2,400 mg PO DAILY 01/18/20 03/29/22 mg Fish Oil] Metoprolol Tartrate [Lopressor] 100 mg PO HS 01/18/20 03/29/22 Montelukast Sodium [Singulair] 10 mg PO HS 01/18/20 03/29/22 Niacinamide 500mg 500 mg PO BID 01/18/20 03/29/22 Omeprazole 20 mg PO QAM 01/18/20 03/29/22 Simvastatin 40 mg PO HS 01/18/20 03/29/22 Vit C/E/Zn/Coppr/Lutein/Zeaxan 1 cap PO BID 01/18/20 03/29/22 [Preservision Areds 2 Softgel] metFORMIN HCL [Glucophage] 500 mg PO BID 01/18/20 03/29/22 Losartan Potassium 100 mg PO QAM 03/29/22 03/29/22 Multivitamins, Thera [Multivitamin 1 tab PO DAILY 03/29/22 03/29/22 (formulary)] hydrALAZINE HCL [Apresoline] 100 mg PO BID-W/MEALS 03/29/22 03/29/22 Previous Rx's Medication Instructions Recorded HYDROcodone/APAP 5-325MG [[place] 1 tab PO Q6HR PRN 3 Days #12 tab 04/15/22 5-325] Allergies Allergy/AdvReac Type Severity Reaction Status Date / Time No Known Allergies Allergy Verified 04/15/22 07:09 Review of Systems ROS Statement: Those systems with pertinent positive or pertinent negative responses have been documented in the HPI. ROS Other: All systems not noted in ROS Statement are negative. Past Medical History Past Medical History: Cancer, Diabetes Mellitus, Hyperlipidemia, Hypertension, Osteoarthritis (OA) Additional Past Medical History / Comment(s): Hx skin cancer. Neuropathy. Hx Shingles. Gout. History of Any Multi-Drug Resistant Organisms: None Reported Past Surgical History: Appendectomy, Back Surgery, Orthopedic Surgery Additional Past Surgical History / Comment(s): Left knee surgery, colonoscopies, right elbow surgery, laminectomy, L3-L4 fusion. Past Anesthesia/Blood Transfusion Reactions: No Reported Reaction Past Psychological History: No Psychological Hx Reported Smoking Status: Never smoker Past Alcohol Use History: Occasional Past Drug Use History: None Reported - Past Family History Father Family Medical History: Myocardial Infarction ([place]), Osteoarthritis (OA) Additional Family Medical History / Comment(s): Father had several myocardial infarctions his first starting in the 50s, at age 88. Mother Family Medical History: Cancer Additional Family Medical History / Comment(s): Mother did not have any coronary artery disease, no history of stroke. She from pancreatic cancer. Sister(s) Family Medical History: Cancer, Osteoarthritis (OA) Additional Family Medical History / Comment(s): Skin cancer. Brother(s) Family Medical History: Cancer Additional Family Medical History / Comment(s): Skin cancer. General Exam Limitations: no limitations Course Vital Signs 04/15/22 07:09 Temperature 98.2 F Pulse Rate 63 Respiratory 16 Rate Blood Pressure 193/97 O2 Sat by Pulse 99 Oximetry Medical Decision Making - Lab Data Result diagrams: 04/15/22 07:18 04/15/22 07:18 Lab Results 04/15/22 04/15/22 04/15/22 Range/Units 07:18 07:18 07:18 WBC 7.2 (3.8-10.6) k/uL RBC 4.13 L (4.30-5.90) m/uL Hgb 12.3 L (13.0-17.5) gm/dL Hct 38.7 L (39.0-53.0) % MCV 93.8 (80.0-100.0) fL MCH 29.8 (25.0-35.0) pg MCHC 31.8 (31.0-37.0) g/dL RDW 12.5 (11.5-15.5) % Plt Count 331 (150-450) k/uL MPV 7.5 Neutrophils % 57 % Lymphocytes % 27 % Monocytes % 6 % Eosinophils % 7 % Basophils % 1 % Neutrophils # 4.1 (1.3-7.7) k/uL Lymphocytes # 1.9 (1.0-4.8) k/uL Monocytes # 0.4 (0-1.0) k/uL Eosinophils # 0.5 (0-0.7) k/uL Basophils # 0.1 (0-0.2) k/uL Sodium 141 (137-145) mmol/L Potassium 4.3 (3.5-5.1) mmol/L Chloride 105 (98-107) mmol/L Carbon Dioxide 25 (22-30) mmol/L Anion Gap 11 mmol/L BUN 16 (9-20) mg/dL Creatinine 1.32 H (0.66-1.25) mg/dL Est GFR (CKD-EPI)AfAm 61 (>60 ml/min/1.73 sqM) Est GFR (CKD-EPI)NonAf 53 (>60 ml/min/1.73 sqM) Glucose 138 H (74-99) mg/dL Calcium 10.0 (8.4-10.2) mg/dL Total Bilirubin 0.5 (0.2-1.3) mg/dL AST 25 (17-59) U/L ALT 18 (4-49) U/L Alkaline Phosphatase 58 (38-126) U/L Total Protein 7.9 (6.3-8.2) g/dL Albumin 5.0 (3.5-5.0) g/dL Lipase 212 (23-300) U/L Urine Color Light Yellow Urine Appearance Clear (Clear) Urine pH 8.0 (5.0-8.0) Ur Specific [place] 1.009 (1.001-1.035) Urine Protein Negative (Negative) Urine Glucose (UA) Negative (Negative) Urine Ketones Negative (Negative) Urine Blood Small H (Negative) Urine Nitrite Negative (Negative) Urine Bilirubin Negative (Negative) Urine Urobilinogen <2.0 (<2.0) mg/dL Ur Leukocyte Esterase Negative (Negative) Urine RBC 25 H (0-5) /hpf Urine WBC <1 (0-5) /hpf Disposition Clinical Impression: Kidney stone Disposition: HOME SELF-CARE Condition: Good Instructions (If sedation given, give patient instructions): Kidney Stones (ED) Prescriptions: HYDROcodone/APAP 5-325MG [[place] 5-325] 1 tab PO Q6HR PRN 3 Days #12 tab PRN Reason: Severe Pain Is patient prescribed a controlled substance at d/c from ED?: Yes If prescribed controlled substance>3 days was MAPS reviewed?: Prescribed <3 Days Referrals: Ras Leong MD [Primary Care Provider] - 1-2 days Markell Eckert MD [STAFF PHYSICIAN] - 1-2 days Time of Disposition: 09:21
[2022-04-15 07:59] LABS: Basophils # (A) 0.1 k/uL (0-0.2); Basophils % (A) 1 %; Eosinophils # (A) 0.5 k/uL (0-0.7); Eosinophils % (A) 7 %; HCT 38.7 % (39.0-53.0); HGB 12.3 gm/dL (13.0-17.5); Lymphocytes # (A) 1.9 k/uL (1.0-4.8); Lymphocytes % (A) 27 %; MCH 29.8 pg (25.0-35.0); MCHC 31.8 g/dL (31.0-37.0); MCV 93.8 fL (80.0-100.0); Mean Platelet Volume 7.5; Monocytes # (A) 0.4 k/uL (0-1.0); Monocytes % (A) 6 %; Neutrophils # (A) 4.1 k/uL (1.3-7.7); Neutrophils % (A) 57 %; Platelet Count 331 k/uL (150-450); RBC 4.13 m/uL (4.30-5.90); RDW 12.5 % (11.5-15.5); WBC 7.2 k/uL (3.8-10.6)
[2022-04-15 08:04] LABS: Appearance,Urine Clear (Clear); Bilirubin,Urine Negative (Negative); Blood,Urine Small (Negative); Color,Urine Light Yellow; Glucose,Urine (UA) Negative (Negative); Ketones,Urine Negative (Negative); Leukocyte Esterase,Urine Negative (Negative); Nitrite,Urine Negative (Negative); Protein,Urine Negative (Negative); RBC,Urine 25 /hpf (0-5); Specific Gravity,Urine 1.009 (1.001-1.035); Urobilinogen,Urine <2.0 mg/dL (<2.0); WBC,Urine <1 /hpf (0-5)
--- NOTE | 2022-04-15 08:13 | CT ---
EXAMINATION TYPE: CT abdomen pelvis wo con DATE OF EXAM: 04/15/2022 COMPARISON: 02/22/2015 HISTORY: Suspect kidney stone CT DLP: 738.9 mGycm Automated exposure control for dose reduction was used. TECHNIQUE: Helical acquisition of images was performed from the lung bases through the pelvis. FINDINGS: The lung bases are clear. There is mild distention of large or tiny gallstones layering in the dependent portion of the gallbla dder. Grossly, the liver, pancreas, spleen and adrenal glands are normal. There is mild left hydronephrosis secondary to a 5.5 mm calculus in the left UVJ. There are no calcifications within the kidneys bilaterally. There is marked prostatic hypertrophy with prostatic calcification. The caliber of the abdominal aorta is normal. The bowel loops are normal in caliber and there is no evidence of bowel obstruction. No inflammatory changes are identified in the bowel wall or mesentery. There is no free intraperitoneal air or fluid. There are postsurgical changes in the thoracolumbar spine otherwise the osseous structures are intact . IMPRESSION: 1. 5.5 mm left UVJ calculus causing mild left-sided hydronephrosis. 2. Cholelithiasis. 3. Marked prostatic hypertrophy.
[2022-04-15] MEDS ORDERED: SODIUM CHLORIDE 0.9% 1,000 ML IV STA (08:17)
[2022-04-15] MEDS ORDERED: KETOROLAC 15 MG/ML 1 ML VIAL IVP STA (08:17)
[2022-04-15] MEDS ORDERED: ONDANSETRON 4 MG/2 ML VIAL IVP STA (08:29)
[2022-04-15 09:29] VITALS: BP 134/68; PULSE 68; RESP 18; TEMP 98.6
== END 2022-04-15 09:28 | disposition home or self-care (01) ==
LOC: EC 06:58
DX: N13.2 Hydronephrosis with renal and ureteral calculous obstruction (principal); E11.40 Type 2 diabetes mellitus with diabetic neuropathy, unspecified; E78.5 Hyperlipidemia, unspecified; I10 Essential (primary) hypertension; M10.9 Gout, unspecified; M19.90 Unspecified osteoarthritis, unspecified site; Z79.84 Long term (current) use of oral hypoglycemic drugs; Z79.899 Other long term (current) drug therapy
CPT/HCPCS: 36415; 80053; 83690; 85025; 81001; 74176; 99284; 96374; 96361; J1885

== ENCOUNTER → 2022-04-30 | Day surgery (SDC) | payer MEDICARE ==
[2022-04-26 16:28] VITALS: BMI 27.2
[~2022-04-30] MED LIST changes: +ALPRAZolam 0.25 MG TAB PO PRN; +ALPRAZolam 0.5 MG TAB PO PRN; +ASPIRIN 325 MG TAB PO ONE; +ATORVASTATIN 80 MG TAB PO ONE; +HEPARIN SODIUM,PORCINE 10,000 UNIT in SODIUM CHLORIDE 0.9% 1,000 ML IRRIGATION PRN; +HEPARIN SODIUM,PORCINE 2,500 UNIT in SODIUM CHLORIDE 0.9% 250 ML IRRIGATION PRN; -LACTATED RINGERS 1,000 ML IV SCH; -LIDOCAINE 1% (10MG/ML) FOR IV START INTRADERMA PRN; +NITROGLYCERIN SL TABS 0.4 MG TAB SUBLINGUAL PRN; -PROPOFOL 10 MG/ML 20 ML VIAL IV ONE; +SODIUM CHLORIDE 0.9% 1,000 ML in EMPTY BAG 1 BAG IV ONE
== END ==
LOC: CATHCVL 09:35
PROVIDERS: ATTEND Internal Medicine Interventional Cardiology
DX: I35.1 Nonrheumatic aortic (valve) insufficiency (principal); Z53.9 Procedure and treatment not carried out, unspecified reason; Z82.49 Family history of ischemic heart disease and other diseases of the circulatory system; I45.4 Nonspecific intraventricular block

== ENCOUNTER 2022-05-04 05:49 | Day surgery (SDC) | payer MEDICARE ==
[2022-05-04] MEDS ORDERED: NITROGLYCERIN SL TABS 0.4 MG TAB SUBLINGUAL PRN (05:54)
[2022-05-04] MEDS ORDERED: ALPRAZolam 0.5 MG TAB PO PRN (05:54)
[2022-05-04] MEDS ORDERED: HEPARIN SODIUM,PORCINE 2,500 UNIT in SODIUM CHLORIDE 0.9% 250 ML IRRIGATION PRN (05:54)
[2022-05-04] MEDS ORDERED: SODIUM CHLORIDE 0.9% 1,000 ML in EMPTY BAG 1 BAG IV ONE (05:54)
[2022-05-04] MEDS ORDERED: ASPIRIN 325 MG TAB PO STA (05:54)
[2022-05-04] MEDS ORDERED: HEPARIN SODIUM,PORCINE 10,000 UNIT in SODIUM CHLORIDE 0.9% 1,000 ML IRRIGATION PRN (05:54)
[2022-05-04] MEDS ORDERED: ALPRAZolam 0.25 MG TAB PO PRN (05:54)
[2022-05-04] MEDS ORDERED: ATORVASTATIN 80 MG TAB PO STA (05:54)
[2022-05-04 06:20] LABS: Glucose,Whole Blood 119 mg/dL (70-110)
[2022-05-04 06:30] VITALS: RESP 16; TEMP 98.3
[2022-05-04] MEDS ORDERED: fentaNYL (PF) 50 MCG/ML 2 ML AMP ONE (07:08)
[2022-05-04] MEDS ORDERED: VERAPAMIL 2.5 MG/ML 2 ML AMP ONE (07:18)
[2022-05-04] MEDS ORDERED: HEPARIN SODIUM 1,000 UN/ML (10ML VL) ONE (07:18)
[2022-05-04] MEDS: BENZOCAINE SPRAY 1 CAN MUCOUS MEM ONE ×2 (07:25→07:48)
[2022-05-04] MEDS ORDERED: IV FLUID CONTINUATION 1,000 ML IV ONE (07:34)
[2022-05-04] MEDS ORDERED: fentaNYL (PF) 50 MCG/ML 2 ML AMP IV ONE (07:49)
[2022-05-04] MEDS ORDERED: MIDAZOLAM 2 MG/2 ML VIAL IV ONE ×2 (07:49→07:52)
--- NOTE | 2022-05-04 08:09 | P.PCN ---
Date of Procedure: 05/04/22 Operative Findings: TRANSESOPHAGEAL ECHOCARDIOGRAM DRAIN TECHNICIAN: ASUNCION MICHELLE MD, RPVI INDICATION: Aortic and mitral regurgitation SEDATION: Conscious sedation COMPLICATION: None LEVEL OF SEDATION Moderate to sedation length of 12 minutes PROCEDURE DESCRIPTION: After obtaining an informed consent, the patient was brought to transesophageal echocardiogram room. Pulse oximetry and heart monitors were attached to the patient. The patient throat was sprayed using lidocaine. The patient was turned into left lateral position. After that a bite guard was placed. After an appropriate conscious sedation was initiated, the transesophageal echocardiogram was advanced through a bite guard into the mid esophagus. A 2-D echocardiogram images, color Doppler images, continuous wave images, pulse-wave images, of various cardiac structure were performed. After that the transesophageal echocardiogram probe was advanced into the stomach and fixed to obtain transgastric view was. The probe was brought into the mid esophagus. Inter-atrial septum was interrogated using 2D images, color Doppler images, and then contrast study. After that transesophageal echocardiogram was withdrawn out and upon withdrawing the descending thoracic aorta all the way up to the arch was evaluated. FINDING: The left ventricular dimension and systolic function appeared to be within normal limits. The ejection fraction appeared to be in the range of 50-55%. The right ventricle appeared to be mildly dilated. The aortic valve is trileaflet valve without stenosis with moderate insufficiency. The mitral valve appeared to be mildly thickened was moderate MR. There is moderate tricuspid regurgitation identified. The interatrial septum appeared to be hyperdynamic with no shunt identified. The left atrial appendage appeared to be free from any thrombus. No evidence of pericardial effusion identified. CONCLUSION: 1. Normal left ventricular dimension and systolic function 2. Dilated right ventricle with a normal function 3. Moderate aortic insufficiency 4. Moderate mitral insufficiency 5. Moderate tricuspid insufficiency 6. No evidence of pericardial effusion
[2022-05-04] MEDS ORDERED: HEPARIN SODIUM 1,000 UN/ML (10ML VL) IV ONE (08:27)
[2022-05-04] MEDS ORDERED: LIDOCAINE 0.5% (PF) 5 MG/ML (50 ML SDV) SQ ONE (08:27)
[2022-05-04] MEDS ORDERED: VERAPAMIL SYRINGE (5 MG/10 ML) INTRAARTER ONE (08:28)
[2022-05-04] MEDS ORDERED: IOPAMIDOL-370 125ML BTL INJ ONE (08:38)
[2022-05-04] MEDS ORDERED: RX INFO: IV CONTRAST WAS GIVEN 1 EACH MISC MISCELLANE PRN (08:39)
--- NOTE | 2022-05-04 08:42 | P.PCN ---
Date of Procedure: 05/04/22 Operative Findings: CARDIAC CATHETERIZATION PERFORMING PHYSICIAN: Baljeet Dee MD, RPVI PROCEDURE PERFORMED: 1. Selective right and left coronary angiogram INDICATION: This is a 76-year-old gentleman with diabetes and hypertension and dyslipidemia continues to be symptomatic in terms of shortness of breath. COMPLICATION: None APPROACH: Right radial artery LEVEL OF SEDATION: Moderate with a sedation length of 15 minute PROCEDURE DESCRIPTION: After obtaining an informed consent, the patient was brought to cardiac cardiac cath lab technologist. Local anesthesia was performed using lidocaine subcutaneously. The right radial artery was cannulated using Seldinger technique, the guidewire passed easily, following that we advanced a 5-Setswana sheath dilator assembly, the wire and dilator were removed and sheath was flushed. Following that, 2 mg of verapamil along with 5000 unit heparin were given. Selective right and left coronary angiogram using a 6-Setswana JR4 and JL 3.5 catheters. The procedure was completed there was no complication. SELECTIVE CORONARY ANGIOGRAM: The right coronary artery: Is a large caliber vessel and super dominant vessel. The RCA has mild diffuse disease. Its calcified. Left main: Has mild disease in the ostium in the range of 10% only. Bifurcates into a LCx and LAD The left circumflex: Large caliber vessel nondominant vessel. The LCx itself is angiographically normal and gives rises into a high OM which appeared to have mild disease only. The left anterior descending artery: Is a large caliber vessel. The LAD is angiographically normal. The LAD does not reach the apex. The LAD gives rises into a large diagonal branch which seems to be angiographically normal. CONCLUSION: 1. Mild nonobstructive CAD POSTPROCEDURE MANAGEMENT: Medical treatment and follow-up with the patient
[2022-05-04] MEDS ORDERED: SODIUM CHLORIDE 0.9% 1,000 ML IV SCH (08:45)
[2022-05-04] MEDS ORDERED: hydrALAZINE HCL 50 MG TAB PO STA (09:21)
[2022-05-04 12:58] VITALS: BP 151/77; PULSE 82
== END 2022-05-04 13:07 | disposition home or self-care (01) ==
LOC: CATHCVL 05:49
PROVIDERS: ATTEND Internal Medicine Interventional Cardiology
DX: I08.0 Rheumatic disorders of both mitral and aortic valves (principal); I25.10 Atherosclerotic heart disease of native coronary artery without angina pectoris; I10 Essential (primary) hypertension; E78.5 Hyperlipidemia, unspecified; Z82.49 Family history of ischemic heart disease and other diseases of the circulatory system; E11.40 Type 2 diabetes mellitus with diabetic neuropathy, unspecified; Z20.822 Contact with and (suspected) exposure to COVID-19; I45.4 Nonspecific intraventricular block; Z79.84 Long term (current) use of oral hypoglycemic drugs; Z79.82 Long term (current) use of aspirin; Z79.899 Other long term (current) drug therapy
CPT/HCPCS: 93312; 93320; 93325; 93454; 87635; C1769 ×2; C1894; J2250; J2001; J3010; J1644; Q9967

== ENCOUNTER → 2022-10-03 | Outpatient (CLI) | payer MEDICARE ==
--- NOTE | 2022-10-03 16:14 | XR ---
EXAMINATION TYPE: XR shoulder complete LT DATE OF EXAM: 10/03/2022 CLINICAL HISTORY: Left shoulder and arm pain TECHNIQUE: Three views of the left shoulder are obtained. COMPARISON: None. FINDINGS: Osseous structures are demineralized. There is no acute fracture/dislocation evident in th e left shoulder. Ycfi-pf-bxyhvafs narrowing at the acromioclavicular joint with mild spurring. Dista l acromion morphology unremarkable. Narrowing with mild/moderate inferior spurring at the glenohumera l joint. The visualized ribs are intact and unremarkable. IMPRESSION: As above.
== END | disposition home or self-care (01) ==
LOC: RADXRMAIN 13:23
PROVIDERS: ATTEND Physician Assistant
DX: M19.012 Primary osteoarthritis, left shoulder (principal)

== ENCOUNTER → 2022-11-02 | Outpatient (CLI) | payer MEDICARE ==
--- NOTE | 2022-11-02 11:00 | BD ---
EXAMINATION TYPE: Axial Bone Density DATE OF EXAM: 11/02/2022 COMPARISON: NONE CLINICAL HISTORY: 76 years year old Male. ICD-10 CODE: M81.0 AGE-RELATED OSTEOPOROSIS W/O CURRENT [facility] Height: 70 IN Weight: 188 LBS FRAX RISK QUESTIONS: History of Fracture in Adulthood: RT ELBOW AGE 66 RISK FACTORS HISTORY OF: History of Wrist Fracture: RT AGE 14 Surgery to Spine: L4 L5 FUSION AND LAMINECTOMY Family History of Osteoporosis: YES MOM, DAD, SISTERS AND BROTHER Active: YES Diet low in dairy products/other sources of calcium: YES MEDICATIONS: Additional Medications: MULTI VIT, OMEPRAZOLE, ALLOPURINOL, LOSARTAN, OMEGA 3, HCTZ, FIBER POWDER, ME TOPROLOL, MONTELUKAST, DOXAZOSIN, HYDRALAZINE, METFORMIN, PRESERVISION, NIACINAMIDE, OLOPATADINE, ALP RAZOLAM, Additional History: SKIN CANCERS EXAM MEASUREMENTS: Bone mineral densitometry was performed using the Serus System. L4-L5 FUSION Bone mineral density about the R hip (g/cm2): 0.731 Bone mineral density about the L hip (g/cm2): 0.755 T Score values are as follows: -----R Neck: -2.2 -----L Neck: -2.0 -----R Total: -1.8 -----L Total: -1.6 Bone mineral density BASELINE Bone mineral density about the L Wrist (g/cm2): 0.653 T Score values are as follows: -----Dist. R+U: -2.4 -----Prox. R+U: -1.2 -----Radius total: -1.5 Bone mineral density BASELINE FRAX%s: The graph provided illustrates a 10.5 chance for a major osteoporotic fx and a 4.2 chance for the hips probability for fx in 10 years time. IMPRESSION: Osteopenia (T Score between -2.5 and -1). There is slightly increased risk of fracture and the patient may be considered for treatment. Re-Screen 2-5 years. NOTE: T-SCORE=SD OF THE YOUNG ADULT MEAN.
== END | disposition home or self-care (01) ==
LOC: RADBDWWP 09:52
PROVIDERS: ATTEND Internal Medicine Geriatric Medicine
DX: M81.0 Age-related osteoporosis without current pathological fracture (principal); M85.89 Other specified disorders of bone density and structure, multiple sites
CPT/HCPCS: 77080

== ENCOUNTER → 2022-11-09 | Outpatient (CLI) | payer MEDICARE ==
--- NOTE | 2022-11-09 09:50 | US ---
EXAMINATION TYPE: US kidneys/renal and bladder DATE OF EXAM: 11/09/2022 COMPARISON: Abdominal ultrasound 06/27/2022 CLINICAL HISTORY: R94.4 abnormal results of kidney function studies. abn function test, no symptoms EXAM MEASUREMENTS: Right Kidney: 9.9 x 4.3 x 4.9 cm Left Kidney: 11.2 x 4.5 x 5.5 cm Right Kidney: No hydronephrosis or masses seen Left Kidney: No hydronephrosis or masses seen Bladder: Under distended and anechoic There is no evidence for hydronephrosis at this point in time. No nephrolithiasis is seen. No clau s are identified. The urinary bladder is anechoic. IMPRESSION: No hydronephrosis or shadowing renal calculi.
== END | disposition home or self-care (01) ==
LOC: RADUSWWP 09:09
PROVIDERS: ATTEND Internal Medicine Geriatric Medicine
DX: R94.4 Abnormal results of kidney function studies (principal)
CPT/HCPCS: 76770

== ENCOUNTER → 2023-10-01 | Outpatient (CLI) | payer MEDICARE ==
--- NOTE | 2023-10-01 15:06 | MR ---
EXAMINATION TYPE: MR cervical spine wo con DATE OF EXAM: 10/01/2023 2:50 PM COMPARISON: NONE HISTORY: Pain and numbness in both hands Multiplanar MultiSpin echo imaging of the cervical spine was performed. Comparison: none C2-C3: No evidence for degenerative disc disease. No disc bulge/herniation or protrusion. No Canal stenosis. Foramina are patent bilaterally. C3-C4: Moderate degenerative disc space narrowing. Mild posterior disc bulge with mild effacement madeline tral thecal sac. No evidence for central stenosis degenerative changes of the uncovertebral joints re sulting in bilateral moderate neural foraminal encroachment. C4-C5: Moderate to severe degenerative disc space narrowing. Posterior disc bulge. Hypertrophic hanley es resulting in mild central stenosis. Bilateral neural foraminal encroachment. C5-C6: Moderate to severe degenerative disc space narrowing. Posterior disc bulge. Hypertrophic hanley es resulting in mild central stenosis. Bilateral neural foraminal encroachment. C6-C7: Moderate degenerative disc space narrowing. Right paracentral disc bulge resulting in right fo raminal encroachment. No central stenosis. Mild left foraminal encroachment. C7-T1: Moderate degenerative disc space narrowing. Mild posterior disc bulge with mild effacement madeline tral thecal sac. No evidence for central stenosis degenerative changes of the uncovertebral joints re sulting in bilateral moderate neural foraminal encroachment. Cervical segments are intact. There is normal alignment. Cervical spinal cord is of normal signal. Craniovertebral junction relationships are within normal limits. IMPRESSION: 1. Multilevel degenerative disc disease. 2. Central stenosis at C4-5 and C5-6. 3. Multilevel varying degrees of foraminal encroachment.
== END | disposition home or self-care (01) ==
LOC: RADMRIMAIN 14:20
PROVIDERS: ATTEND Internal Medicine Geriatric Medicine
DX: M50.31 Other cervical disc degeneration, high cervical region (principal); M48.02 Spinal stenosis, cervical region
CPT/HCPCS: 72141

== ENCOUNTER 2025-01-06 18:30 | Emergency (ER) | payer MEDICARE ==
[2025-01-06 20:43] LABS: Basophils % (A) 1 %; Eosinophils # (A) 0.5 k/uL (0-0.7); Eosinophils % (A) 7 %; HCT 40.5 % (39.0-53.0); HGB 13.1 gm/dL (13.0-17.5); Lymphocytes # (A) 1.8 k/uL (1.0-4.8); Lymphocytes % (A) 27 %; MCH 30.3 pg (25.0-35.0); MCHC 32.4 g/dL (31.0-37.0); MCV 93.4 fL (80.0-100.0); Mean Platelet Volume 7.8; Monocytes # (A) 0.5 k/uL (0-1.0); Monocytes % (A) 8 %; Neutrophils # (A) 3.6 k/uL (1.3-7.7); Neutrophils % (A) 55 %; Platelet Count 264 k/uL (150-450); RBC 4.34 m/uL (4.30-5.90); WBC 6.5 k/uL (3.8-10.6)
[2025-01-06] MEDS: LORazepam 1 MG TAB PO STA (20:43)
[2025-01-06 20:47] VITALS: RESP 19
[2025-01-06 20:53] LABS: ALT 17 U/L (4-49); AST 19 U/L (17-59); African American GFR (CKD) 49 (>60 ml/min/1.73 sqM); Albumin 4.7 g/dL (3.5-5.0); Alkaline Phosphatase 77 U/L (38-126); Anion Gap 9 mmol/L; Blood Urea Nitrogen 25 mg/dL (9-20); Calcium 9.6 mg/dL (8.4-10.2); Carbon Dioxide 27 mmol/L (22-30); Chloride 102 mmol/L (98-107); Glucose 101 mg/dL (74-99); Non-African American GFR(CKD) 43 (>60 ml/min/1.73 sqM); Potassium 3.8 mmol/L (3.5-5.1); Sodium 138 mmol/L (137-145); Total Bilirubin 0.7 mg/dL (0.2-1.3); Total Protein 7.3 g/dL (6.3-8.2)
[2025-01-06] MEDS: hydrALAZINE HCL 20 MG/ML 1 ML VIAL IVP STA (21:43)
[2025-01-06] MEDS: SODIUM CHLORIDE 0.9% 500 ML 500 ML IV ONE (21:43)
[2025-01-06 22:27] VITALS: PULSE 75
[2025-01-06 22:52] VITALS: TEMP 97.8
--- NOTE | 2025-01-06 22:58 | ED ---
General Adult HPI - General Chief complaint: Recheck/Abnormal Lab/Rx Stated complaint: dizziness Time Seen by Provider: 01/06/25 19:50 Source: patient, RN notes reviewed, old records reviewed Mode of arrival: ambulatory Limitations: no limitations - History of Present Illness Initial comments: Patient is a 79-year-old male who presents emergency department complaining of elevated blood pressures. States he was having a to get together with friends last night and one of the friends stated that they checked her blood pressure randomly and it was elevated. He decided to check his blood pressure this evening, and it was elevated. States that the systolics were over 200. He had no symptoms. Presents for further evaluation. States he may have a mild headache at this time but has no other acute complaints. Denies chest pain or shortness of breath. Denies any nausea or vomiting or abdominal pain. Denies any other acute complaints. - Related Data Home Medications Medication Instructions Recorded Confirmed Doxazosin [Cardura] 4 mg PO HS 01/18/20 05/04/22 Fish Oil/Dha/Epa [Fish Oil 1,200 2,400 mg PO DAILY 01/18/20 05/04/22 mg Fish Oil] Montelukast Sodium [Singulair] 10 mg PO HS 01/18/20 05/04/22 Niacinamide 500mg 500 mg PO BID 01/18/20 05/04/22 Omeprazole 20 mg PO QAM 01/18/20 05/04/22 Simvastatin 40 mg PO HS 01/18/20 05/04/22 Vit C/E/Zn/Coppr/Lutein/Zeaxan 1 cap PO BID 01/18/20 05/04/22 [Preservision Areds 2 Softgel] allopurinoL [Zyloprim] 300 mg PO DAILY 01/18/20 05/04/22 Losartan Potassium 100 mg PO QAM 03/29/22 05/04/22 Multivitamins, Thera [Multivitamin 1 tab PO DAILY 03/29/22 05/04/22 (formulary)] hydrALAZINE HCL [Apresoline] 100 mg PO BID-W/MEALS 03/29/22 05/04/22 Metoprolol Succinate (ER) [Toprol 100 mg PO HS 04/26/22 05/04/22 XL] Previous Rx's Medication Instructions Recorded amLODIPine [Norvasc] 5 mg PO DAILY PRN #7 tab 01/06/25 Allergies Allergy/AdvReac Type Severity Reaction Status Date / Time No Known Allergies Allergy Verified 01/06/25 19:30 Review of Systems ROS Statement: Those systems with pertinent positive or pertinent negative responses have been documented in the HPI. Review of Systems: CONST: Denies fever EYES: Denies blurry vision ENT: Denies nasal congestion C/V: Denies Chest pain RESP: Denies shortness of breath GI: Denies abdominal pain : Denies dysuria SKIN: Denies rash. MSK: Denies joint pain. NEURO: Denies headache ROS Other: All systems not noted in ROS Statement are negative. Past Medical History Past Medical History: Cancer, Diabetes Mellitus, Hyperlipidemia, Hypertension, Osteoarthritis (OA) Additional Past Medical History / Comment(s): Hx skin cancer. Neuropathy. Hx Shingles. Gout. History of Any Multi-Drug Resistant Organisms: None Reported Past Surgical History: Appendectomy, Back Surgery, Orthopedic Surgery Additional Past Surgical History / Comment(s): Left knee surgery, colonoscopies, right elbow surgery, laminectomy, L3-L4 fusion. Past Anesthesia/Blood Transfusion Reactions: No Reported Reaction Past Psychological History: No Psychological Hx Reported Smoking Status: Never smoker - Past Family History Father Family Medical History: Cancer, Myocardial Infarction (NV), Osteoarthritis (OA) Additional Family Medical History / Comment(s): Father had several myocardial infarctions his first starting in the 50s, at age 88. SKIN CANCER Mother Family Medical History: Cancer Additional Family Medical History / Comment(s): Mother did not have any coronary artery disease, no history of stroke. She from pancreatic cancer. Sister(s) Family Medical History: Cancer, Osteoarthritis (OA) Additional Family Medical History / Comment(s): Skin cancer. Brother(s) Family Medical History: Cancer Additional Family Medical History / Comment(s): Skin cancer. General Exam - General Exam Comments Initial Comments: General: Appears in no acute distress. HEAD: Normal with no signs of head trauma. EYES: PERRLA, EOMI, conjunctiva normal, no discharge. ENT: Hearing grossly intact, normal oropharynx. RESPIRATORY: Clear breath sounds bilaterally. No wheezes, rales, or rhonchi. C/V: Regular rate and rhythm. S1 and S2 auscultated, no edema, peripheral pulses 2+ and intact throughout ABD: Abd is soft, nontender, nondistended EXT: Normal range of motion, no obvious deformity SKIN: No rashes or lesions observed on exposed skin. NEURO: Alert and oriented x 4. Limitations: no limitations Course Vital Signs 01/06/25 01/06/25 01/06/25 19:27 20:39 20:43 Temperature 97.8 F 98.6 F Pulse Rate 76 75 Respiratory 18 19 Rate Blood Pressure 182/99 175/105 175/105 O2 Sat by Pulse 99 96 Oximetry 01/06/25 01/06/25 21:25 22:22 Temperature Pulse Rate 71 75 Respiratory 19 Rate Blood Pressure 173/98 172/95 O2 Sat by Pulse 97 97 Oximetry Medical Decision Making - Medical Decision Making Was pt. sent in by a medical professional or institution ([facility], CULTURAL HISTORIAN, urgent care, hospital, or residential...) When possible be specific @ -No Did you speak to anyone other than the patient for history (EMS, parent, family, police, friend...)? What history was obtained from this source @ -No Did you review nursing and triage notes (agree or disagree)? Why? @ -I reviewed and agree with nursing and triage notes Were old charts reviewed (outside hosp., previous admission, EMS record, old EKG, old radiological studies, urgent care reports/EKG's, residential records)? Report findings @ -Reviewed patient's medication list. Differential Diagnosis (chest pain, altered mental status, abdominal pain women, abdominal pain men, vaginal bleeding, weakness, fever, dyspnea, syncope, headache, dizziness, GI bleed, back pain, seizure, CVA, palpatations, mental he alth, musculoskeletal)? @ -Asymptomatic hypertension, BRANDEN on CKD, electrolyte abnormality. This list is not all inclusive. EKG interpreted by me (3pts min.). @ -As above X-rays interpreted by me (1pt min.). @ -None done CT interpreted by me (1pt min.). @ -None done U/S interpreted by me (1pt. min.). @ -None done What testing was considered but not performed or refused? (CT, X-rays, U/S, lab s)? Why? @ -None What meds were considered but not given or refused? Why? @ -None Did you discuss the management of the patient with other professionals (professionals i.e. , PA, CULTURAL HISTORIAN, lab, RT, psych nurse, social worker assistant, military lawyer, teacher, motorized squad commanding officer, case specialist)? Give summary @ -No Was smoking cessation discussed for >3mins.? @ -No Was critical care preformed (if so, how long)? @ -No Were there social determinants of health that impacted care today? How? (Homelessness, low income, unemployed, alcoholism, drug addiction, transportation, low edu. Level, literacy, decrease access to med. care, half-way, rehab)? @ -No Was there de-escalation of care discussed even if they declined (Discuss DNR or withdrawal of care, Hospice)? DNR status @ -No What co-morbidities impacted this encounter? (DM, HTN, Smoking, COPD, CAD, Cancer, CVA, ARF, Chemo, Hep., AIDS, mental health diagnosis, sleep apnea, morbid obesity)? @ -Hypertension Was patient admitted / discharged? Hospital course, mention meds given and route, prescriptions, significant lab abnormalities, going to OR and other pertinent info. @ -Patient presents for asymptomatic hypertension. Randomly checked his blood pressure this evening and it was elevated. States he developed a mild headache afterwards with mild lightheadedness afterwards. Does have a history of anxiety. States he does seem somewhat anxious regarding this. Has no other acute complaints. Presents for further evaluation. Patient was given a dose of Ativan. Will obtain basic labs as well as screening EKG. Patient was in agreement this plan. Blood pressure upon arrival was 182/99. EKG showed no signs of acute ischemia. Laboratory studies remarkable for CKD which appears to be at baseline. GFR is 43, and patient had recent GFR of approximately the same approximate 1 month ago. States his systolic blood pressures anywhere from 140-150 typically. States he has been compliant with medications. At this time, patient is feeling improved. The Ativan did not drop his blood pressure significantly and therefore able to be given a small dose of IV hydralazine as he is concerned that it may drop his blood pressure too much. Patient did have mild improvement in blood pressure. At this time, I believe it is safe for him to be discharged home. He has asymptomatic hypertension. May need medication adjustments. He will be given a as needed prescription of Norvasc for home with instructions to take if systolic blood pressures greater than 185. Recommended he monitor blood pressure with a log. Return to the ER if any concerns or worsening symptoms. He was in agreement this plan. Recommend follow-up with Dr. Leong tomorrow. He was in agreement this plan. I will provide the patient with a prescription for Norvasc. I instructed the patient to follow up with their PCP in the next 1-3 days.. I explained that the patient should return to the emergency department if they experience any worsening symptoms. Strict return precautions were discussed with the patient. The patient expressed understanding of these instructions. I answered all questions that the patient had. The patient was discharged home in good condition with their prescriptions and follow up information. Undiagnosed new problem with uncertain prognosis? @ -No Drug Therapy requiring intensive monitoring for toxicity (Heparin, Nitro, Insulin, Cardizem)? @ -No Were any procedures done? @ -No Diagnosis/symptom? @ -Asymptomatic hypertension, CKD Acute, or Chronic, or Acute on Chronic? @ -Acute Uncomplicated (without systemic symptoms) or Complicated (systemic symptoms)? @ -Uncomplicated Side effects of treatment? @ -No Exacerbation, Progression, or Severe Exacerbation? @ -No Poses a threat to life or bodily function? How? (Chest pain, [place], [place], pneumonia, PE, COPD, DKA, ARF, appy, cholecystitis, CVA, Diverticulitis, Homicidal, Suicidal, threat to staff... and all critical care pts) @ -Unlikely at this time - Lab Data Result diagrams: 01/06/25 20:25 01/06/25 20:25 Lab Results 01/06/25 01/06/25 Range/Units 20:25 20:25 WBC 6.5 (3.8-10.6) k/uL RBC 4.34 (4.30-5.90) m/uL Hgb 13.1 (13.0-17.5) gm/dL Hct 40.5 (39.0-53.0) % MCV 93.4 (80.0-100.0) fL MCH 30.3 (25.0-35.0) pg MCHC 32.4 (31.0-37.0) g/dL RDW 13.0 (11.5-15.5) % Plt Count 264 (150-450) k/uL MPV 7.8 Neutrophils % 55 % Lymphocytes % 27 % Monocytes % 8 % Eosinophils % 7 % Basophils % 1 % Neutrophils # 3.6 (1.3-7.7) k/uL Lymphocytes # 1.8 (1.0-4.8) k/uL Monocytes # 0.5 (0-1.0) k/uL Eosinophils # 0.5 (0-0.7) k/uL Basophils # 0.0 (0-0.2) k/uL Sodium 138 (137-145) mmol/L Potassium 3.8 (3.5-5.1) mmol/L Chloride 102 (98-107) mmol/L Carbon Dioxide 27 (22-30) mmol/L Anion Gap 9 mmol/L BUN 25 H (9-20) mg/dL Creatinine 1.55 H (0.66-1.25) mg/dL Est GFR (CKD-EPI)AfAm 49 (>60 ml/min/1.73 sqM) Est GFR (CKD-EPI)NonAf 43 (>60 ml/min/1.73 sqM) Glucose 101 H (74-99) mg/dL Calcium 9.6 (8.4-10.2) mg/dL Magnesium 2.0 (1.6-2.3) mg/dL Total Bilirubin 0.7 (0.2-1.3) mg/dL AST 19 (17-59) U/L ALT 17 (4-49) U/L Alkaline Phosphatase 77 (38-126) U/L Total Protein 7.3 (6.3-8.2) g/dL Albumin 4.7 (3.5-5.0) g/dL - EKG Data -: EKG Interpreted by Me EKG Comments: 12-lead Electrocardiogram Interpretation Note EKG was reviewed and interpreted by myself. 12-lead ECG performed at 1935 is interpreted by me as revealing normal sinus rhythm at a rate of 66 beats per minute. Indeterminate axis. TX interval is 184 ms, QRS durations 117 ms, QTc is 428 ms.. There were no ST or T wave abnormalities to suggest myocardial ischemia or injury. R wave progression across the precordium was delayed. By my interpretation this EKG is non-diagnostic for acute ischemia. Compared with EKG from January 2020 with no significant change. Disposition Clinical Impression: Asymptomatic hypertension, CKD (chronic kidney disease) Disposition: HOME SELF-CARE Condition: Good Instructions (If sedation given, give patient instructions): Hypertension (ED) Additional Instructions: Follow-up with your PCP, Dr. Leong within the next 1 to 3 days. Monitor your blood pressure every day around noon. Keep a log of your blood pressures. If systolic blood pressures greater than 185, repeat blood pressure 1 hour later. If it remains elevated over 185, take 1 dose of Norvasc. Do not take Norvasc on a daily basis. Only taking 1 dose of Norvasc as needed per day. Follow-up with your PCP in the next 1 to 3 days. Return if any worsening or concerning symptoms. Prescriptions: amLODIPine [Norvasc] 5 mg PO DAILY PRN #7 tab PRN Reason: Hypertension Is patient prescribed a controlled substance at d/c from ED?: No Referrals: Ras Leong MD [Primary Care Provider] - 1-2 days Time of Disposition: 23:00
[2025-01-06 23:21] VITALS: BP 153/92
== END 2025-01-06 23:25 | disposition home or self-care (01) ==
LOC: EC 18:30
DX: I12.9 Hypertensive chronic kidney disease with stage 1 through stage 4 chronic kidney disease, or unspecified chronic kidney disease (principal); E11.22 Type 2 diabetes mellitus with diabetic chronic kidney disease; N18.9 Chronic kidney disease, unspecified; E11.40 Type 2 diabetes mellitus with diabetic neuropathy, unspecified
CPT/HCPCS: 36415; 93005; 80053; 83735; 85025; 99284; 96374; 96361; J0360